=== PATIENT | male | born 1930 | race Caucasian/White ===

== ENCOUNTER 2018-11-23 13:13 | Outpatient (CLI) | payer SELFPAY | END 2018-11-23 13:14 | disposition EMS.NT | LOC: EMS 13:13 | PROVIDERS: ATTEND Surgery | DX: R06.02 Shortness of breath (principal) ==

== ENCOUNTER 2018-11-23 14:12 | Emergency (ER) | payer MEDICARE, OTHER ==
[2018-11-23 15:10] LABS: BASOPHILS % (AUTO) 0.5 %; EOSINOPHILS % (AUTO) 0.4 %; HGB - HEMOGLOBIN 13.7 g/dL (14.0-18.0); LYMPHOCYTES # (AUTO) 0.9 10^3/uL (1.5-3.5); LYMPHOCYTES % (AUTO) 11.8 %; MEAN CORPUSCULAR HEMOGLOBIN 30.8 pg (27.0-31.0); MEAN CORPUSCULAR HGB CONC 33.3 g/dL (32.0-36.0); MEAN CORPUSCULAR VOLUME 92.6 fL (80.0-94.0); MEAN PLATELET VOLUME 8.8 fL (7.4-11.4); MONOCYTES # (AUTO) 0.6 10^3/uL (0.0-1.0); MONOCYTES % (AUTO) 7.7 %; NEUTROPHILS # (AUTO) 5.8 10^3/uL (1.5-6.6); NEUTROPHILS % (AUTO) 79.6 %; PLT - PLATELET COUNT 165 10^3/uL (130-450); RED BLOOD COUNT 4.44 10^6/uL (4.70-6.10); RED CELL DISTRIBUTION WIDTH 13.8 % (12.0-15.0); WHITE BLOOD COUNT 7.3 x10^3/uL (4.8-10.8)
[2018-11-23 15:23] LABS: ALBUMIN 3.6 g/dL (3.2-5.5); ALBUMIN/GLOBULIN RATIO 1.3 (1.0-2.2); BILIRUBIN,TOTAL 1.4 mg/dL (0.2-1.0); CALCIUM 8.8 mg/dL (8.5-10.3); CREATININE 1.2 mg/dL (0.6-1.2); TOTAL PROTEIN 6.3 g/dL (6.7-8.2)
--- NOTE | 2018-11-23 15:28 | XRAY Report ---
Reason: sob Procedure Date: 11/23/2018 Accession Number: [id number] / [id number] Procedure: XR - Chest 1 View X-Ray CPT Code: 77829 FULL RESULT: EXAM: CHEST RADIOGRAPHY EXAM DATE: 11/23/2018 03:05 PM. CLINICAL HISTORY: Shortness of breath. COMPARISON: XR CHEST 2 VIEWS 09/15/2018 10:10 AM XR CHEST 2 VIEWS 04/17/2017 11:[address] CHEST WITHOUT CONTRAST 12/03/2017 12:15 PM. TECHNIQUE: 1 view. FINDINGS: Lungs/Pleura: Coarse lung markings and interstitial opacities have them proved compared with 09/15/2018 exam. There is persistent patchy and streaky opacities in the right upper lobe, nonspecific. The left lung remains relatively clear. Trace pleural effusions are seen. No pneumothorax. Mediastinum: Heart and mediastinal contours are notable for aortic calcification. Other: None. IMPRESSION: Improved interstitial pulmonary disease/edema compared with 09/15/2018. Persistent patchy right mid and upper lung airspace disease in part due to scarring is seen. Small focus of pneumonia or aspiration is not excluded. RADIA
--- NOTE | 2018-11-23 17:45 | ED Physician Documentation ---
PD HPI DYSPNEA - Stated complaint Stated Complaint: SOB - Chief complaint Chief Complaint: General - History obtained from History obtained from: Patient, EMS - History of Present Illness Timing - onset: How many hours ago (3-4), Today Timing - onset during: Exertion (carrying table, also having stress of his 's yesterday.) Timing - duration: Minutes (30-40 (onset carrying and loading table into car, continued somewhat driving to daughters house, and then carrying table into their house - felt better once there and rested).) Timing - details: Abrupt onset, Now resolved. No: Still present Inciting event(s): Exercise, Emotional event (he is very sad with his recently and yesterday was his . He is clearing out some household goods and was carrying a small table today, when developed some chest pressure/dyspnea. This continued some as he drove it to his daughters house. [place] better when rested finally. Denies ongoing chest pain.). No: Out of meds, URI Associated symptoms: No: Fever, Cough Similar symptoms before: Diagnosis (had had CAD with angina and had 2 stents placed couple years ago without problems since then. No history of lung disease.) Recently seen: Not recently seen Review of Systems Constitutional: denies: Fever Nose: denies: Rhinorrhea / runny nose, Congestion Throat: denies: Sore throat Cardiac: reports: Chest pain / pressure. denies: Palpitations, Pedal edema (he has not noted leg swelling himself.), Calf pain Respiratory: reports: Dyspnea. denies: Cough GI: denies: Abdominal Pain, Nausea, Vomiting, Bloody / black stool Skin: denies: Rash, Lesions Neurologic: reports: Generalized weakness. denies: Focal weakness, Numbness, Near syncope PD PAST MEDICAL HISTORY - Past Medical History Cardiovascular: Coronary artery disease (with 2 stents couple of years ago), Atrial fibrillation Respiratory: None Neuro: None Endocrine/Autoimmune: None - Past Surgical History Cardiovascular: Coronary stent - Present Medications Home Medications: Ambulatory Orders Medication Instructions Recorded Confirmed hydroCHLOROthiazide 25 mg PO DAILY #30 tablet 11/23/18 [Hydrochlorothiazide] - Allergies Allergies/Adverse Reactions: Allergies Allergy/AdvReac Type Severity Reaction Status Date / Time No Known Drug Allergies Allergy Verified 11/23/18 14:46 - Living Situation Living Situation: reports: With family (had lived with , who several days ago, and yesterday.) Living Arrangement: reports: At home - Social History Does the pt smoke?: No Does the pt drink ETOH?: No - Family History Family history: reports: Non contributory PD ED PE NORMAL - Vitals Vital signs reviewed: Yes (hypertensive) - General General: Alert and oriented X 3, No acute distress, Well developed/nourished - HEENT HEENT: Pharynx benign - Neck Neck: Supple, no meningeal sign, No adenopathy - Cardiac Cardiac: RRR, No murmur - Respiratory Respiratory: Clear bilaterally, Other (no chestwall tenderness) - Abdomen Abdomen: Soft, Non tender - Derm Derm: Normal color - Extremities Extremities: No deformity, No tenderness to palpate, Normal ROM s pain, No calf tenderness / cord, Other (1+ edema in both lower legs. ) - Neuro Neuro: Alert and oriented X 3, No motor deficit, Normal speech Results - Vitals Vitals: Vital Signs - 24 hr 11/23/18 11/23/18 11/23/18 14:42 17:06 18:21 Temperature 36.7 C 36.8 C Heart Rate 65 83 82 Respiratory 14 18 25 H Rate Blood Pressure 181/78 H 178/97 H 202/74 H O2 Saturation 97 98 97 11/23/18 11/23/18 11/23/18 18:23 18:24 18:33 Temperature Heart Rate 77 87 82 Respiratory 22 28 H 16 Rate Blood Pressure 202/74 H 183/100 H 193/104 H O2 Saturation 96 94 96 Oxygen O2 Source Room air - EKG (time done) 15:02 Rate: Rate (enter#) (82) Rhythm: Atrial fibrillation [place]: Normal QRS: Normal Ischemia: Normal ST segments. No: ST elevation c/w ischemia, ST depression - Labs Labs: Laboratory Tests 11/23/18 11/23/18 11/23/18 15:05 15:05 15:05 WBC 7.3 RBC 4.44 L Hgb 13.7 L Hct 41.1 L MCV 92.6 MCH 30.8 MCHC 33.3 RDW 13.8 Plt Count 165 MPV 8.8 Neut # (Auto) 5.8 Lymph # (Auto) 0.9 L [place] # (Auto) 0.6 Eos # (Auto) 0.0 Baso # (Auto) 0.0 Absolute Nucleated RBC 0.00 Nucleated RBC % 0.0 Sodium 142 Potassium 3.6 Chloride 106 Carbon Dioxide 26 Anion Gap 10.0 BUN 27 H Creatinine 1.2 Estimated GFR (MDRD) 57 L Glucose 93 Calcium 8.8 Total Bilirubin 1.4 H AST 23 ALT 17 Alkaline Phosphatase 89 Troponin I < 0.04 Total Protein 6.3 L Albumin 3.6 Globulin 2.7 Albumin/Globulin Ratio 1.3 Lipase 75 H - Rads (name of study) chest xray Radiology: Prelim report reviewed (no acute process), See rad report PD MEDICAL DECISION MAKING - ED course Complexity details: reviewed results (No signs acute VA nor CHF. CXR clear. He does not have any chest pressure/pain subsequently to that episode while carrying the table. Encouraged him to not exert and will start mild HTN med. to f/u with PMD. Consider stress test or such to eval for potential angina. He had had stents 2 years ago with self-reported normal vessels otherwise. Feel lower likelihood of angina but to follow with PMD/Immigration Manager. ), considered differential (consider VA, hypertensive symptoms, angina, CHF, lung process. ), d/w patient Departure - Departure Disposition: Home, Self Care Clinical Impression: Exertional dyspnea Hypertension Qualifiers: Hypertension type: unspecified Qualified Code(s): I10 - Essential (primary) hypertension Condition: Stable Record reviewed to determine appropriate education?: Yes Instructions: ED Dyspnea Shortness of Breath Follow-Up: Morgan Beard MD [Primary Care Provider] - Prescriptions: hydroCHLOROthiazide [Hydrochlorothiazide] 25 mg PO DAILY #30 tablet Comments: You do have a little bit of edema in your legs and your blood pressure was somewhat high. I would suggest adding a mild water pill (diuretic) hot HCTZ daily for the next several weeks to a month while you are following up with your lung doctor and primary care. Continue your other usual medications. Try not to do any exertional activity. See your incoming inspector tomorrow as planned. Return if you have symptoms develop at rest or any other worsening problem. Your EKG and blood tests here do not suggest any heart failure or heart attacks or obvious infections. The concern would be for potential angina symptoms related to the stress and blood pressure being elevated. This wants to be followed up with your providers. They will likely want to do a stress test in the near future to ensure no signs of developing new blockages in the heart. Discharge Date/Time: 11/23/18 18:56
[2018-11-23] MEDS ORDERED: METOPROLOL 5 MG/5 ML VIAL IVP STA (18:12)
[2018-11-23] MEDS ORDERED: ISOSORBIDE MONONITRATE ER 30 MG TABLET PO STA (18:20)
[2018-11-23 18:33] VITALS: BP 193/104
== END 2018-11-23 18:56 | disposition home or self-care (01) ==
LOC: ED 14:12
DX: R07.89 Other chest pain (principal); R06.09 Other forms of dyspnea; I10 Essential (primary) hypertension; I48.91 Unspecified atrial fibrillation; I45.81 Long QT syndrome; I25.10 Atherosclerotic heart disease of native coronary artery without angina pectoris; Z95.5 Presence of coronary angioplasty implant and graft
CPT/HCPCS: 36415; 71045; 80053; 83690; 84484; 85025; 93005; 96374; 99283; 99284; A9270

== ENCOUNTER 2020-03-23 19:17 | Outpatient (CLI) | payer MEDICARE, OTHER | END 2020-03-23 19:18 | disposition critical access hospital (66) | LOC: EMS 19:17 | PROVIDERS: ATTEND Surgery | DX: S09.90XA Unspecified injury of head, initial encounter (principal); W01.0XXA Fall on same level from slipping, tripping and stumbling without subsequent striking against object, initial encounter; Z79.01 Long term (current) use of anticoagulants | CPT/HCPCS: A0425; A0429 ==

== ENCOUNTER 2020-03-23 19:55 | Emergency (ER) | payer MEDICARE, OTHER ==
--- NOTE | 2020-03-23 19:42 | ED Physician Documentation ---
History of Present Illness - Stated complaint Stated Complaint: STAFFORD S/P GLF 2 DAYS AGO - History obtained from History obtained from: Patient, EMS - Additonal information Additional information: Patient is an 89-year-old male who was sent in from a nursing home facility after he hit his head 2 days ago and was complaining of his headache. Patient has baseline dementia and denies any other complaints. Known if the patient is anticoagulated or not. Review of Systems Constitutional: reports: Reviewed and negative Eyes: reports: Reviewed and negative Ears: reports: Reviewed and negative Nose: reports: Reviewed and negative Throat: reports: Reviewed and negative Cardiac: reports: Reviewed and negative Respiratory: reports: Reviewed and negative GI: reports: Reviewed and negative : reports: Reviewed and negative Skin: reports: Reviewed and negative Musculoskeletal: reports: Reviewed and negative Neurologic: reports: Headache, Head injury Psychiatric: reports: Reviewed and negative Endocrine: reports: Reviewed and negative Immunocompromised: reports: Reviewed and negative PD PAST MEDICAL HISTORY - Present Medications Home Medications: Ambulatory Orders Medication Instructions Recorded Confirmed hydroCHLOROthiazide 25 mg PO DAILY #30 tablet 11/23/18 [Hydrochlorothiazide] - Allergies Allergies/Adverse Reactions: Allergies Allergy/AdvReac Type Severity Reaction Status Date / Time No Known Drug Allergies Allergy Verified 03/23/20 20:04 PD ED PE NORMAL - Vitals Vital signs reviewed: Yes - General General: Alert and oriented X 3, No acute distress, Well developed/nourished - HEENT HEENT: Atraumatic, PERRL, EOMI, Ears normal, Moist mucous membranes, Pharynx benign, Dentition benign, Other - Neck Neck: Supple, no meningeal sign, No bony TTP - Cardiac Cardiac: RRR, No murmur - Respiratory Respiratory: No respiratory distress, Clear bilaterally - Abdomen Abdomen: Normal bowel sounds, Soft, Non tender, Non distended, No organomegaly - Back Back: No CVA TTP, No spinal TTP - Derm Derm: Normal color, Warm and dry, No rash - Extremities Extremities: No deformity, No tenderness to palpate, Normal ROM s pain, No edema, No calf tenderness / cord - Neuro Neuro: certified athletic trainer 2-12 intact, No motor deficit, No sensory deficit, Normal speech, Other (Only confused no gross neurological deficit) - Psych Psych: Normal mood, Normal affect Results - Vitals Vitals: Vital Signs - 24 hr 03/23/20 03/23/2003/23/20 20:04 20:09 21:03 Temperature 36.5 C 36.5 C 36.7 C Heart Rate 84 84 83 Respiratory 16 16 22 Rate Blood Pressure 161/66 H 161/66 H 206/85 H O2 Saturation 98 98 97 Oxygen O2 Source Room air - Labs Labs: Laboratory Tests 03/23/20 03/23/20 03/23/20 20:39 20:39 20:39 WBC 5.1 RBC 3.86 L Hgb 11.8 L Hct 36.1 L MCV 93.5 MCH 30.6 MCHC 32.7 RDW 13.9 Plt Count 145 MPV 11.0 Neut # (Auto) 3.3 Lymph # (Auto) 1.1 L [place] # (Auto) 0.5 Eos # (Auto) 0.2 Baso # (Auto) 0.0 Absolute Nucleated RBC 0.00 Nucleated RBC % 0.0 PT 13.6 H INR 1.2 APTT 29.0 Sodium 141 Potassium 2.5 L* Chloride 98 L Carbon Dioxide 33 H Anion Gap 10.0 BUN 23 H Creatinine 1.2 Estimated GFR (MDRD) 57 L Glucose 113 H Calcium 8.9 Total Bilirubin 1.7 H AST 22 ALT 13 Alkaline Phosphatase 98 Total Creatine Kinase 132 Total Protein 7.0 Albumin 3.6 Globulin 3.4 Albumin/Globulin Ratio 1.1 Lipase 45 PD MEDICAL DECISION MAKING - ED course Complexity details: re-evaluated patient, d/w patient ED course: Demented 89-year-old male from a nursing home facility fell 2 days ago complaining of a headache brought over by ambulance CT of the head and neck are negative. CT of the neck does mention a right-sided pleural effusion he was noted to have a low potassium as well which was replaced orally the patient is instructed to follow-up on further outpatient management of his incidentally noted right-sided pleural effusion. Patient will be returned to the nursing home facility and follow-up with his doctor tomorrow. Departure - Departure Disposition: 01 Home, Self Care Clinical Impression: Pleural effusion, Hypokalemia Closed head injury Qualifiers: Encounter type: initial encounter Qualified Code(s): S09.90XA - Unspecified injury of head, initial encounter Condition: Stable Instructions: ED Head Injury Closed, ED Effusion Pleural Follow-Up: your,doctor [Other] Earl Carreon MD [Provider Admit Priv/Credential] - Comments: follow up with your primary care provider this week. Your CT scan shows fluid in the right lung. Discharge Date/Time: 03/23/20 21:55
--- NOTE | 2020-03-23 20:35 | CT Report ---
PROCEDURE: HEAD WO INDICATIONS: Trauma, fall, head injury TECHNIQUE: Noncontrast 4.5 mm thick angled axial sections acquired from the foramen magnum to the vertex. For r adiation dose reduction, the following was used: automated exposure control, adjustment of mA and/or kV according to patient size. COMPARISON: None. FINDINGS: Image quality: Excellent. CSF spaces: No abnormal extra-axial fluid collection or extra-axial hemorrhage demonstrated. No findi ngs of mass effect or midline shift. Patent ventricular system and basilar cisterns. Brain: Global cerebral volume loss with patchy hypoattenuation in the cerebral hemispheric white luis er indicative of chronic microvascular ischemic change. No intraparenchymal hemorrhage. Raygoza-white ma tter differentiation is maintained, without CT evidence of acute large territory infarct. Skull and face: Calvarium and visualized facial bones are intact, without suspicious lesions. Sinuses: Visualized sinuses and mastoids are clear. IMPRESSION: No acute intracranial finding. Reviewed by: Alex Bañuelos MD on 03/23/2020 8:34 PM PDT Approved by: Alex Bañuelos MD on 03/23/2020 8:34 PM PDT Station ID: [id number]
--- NOTE | 2020-03-23 20:40 | CT Report ---
PROCEDURE: CERVICAL SPINE WO INDICATIONS: fall head inj TECHNIQUE: Noncontrast 3 mm thick sections acquired from the skull base to the T4 level. Sagittal and coronal r eformats were then constructed. For radiation dose reduction, the following was used: automated exp osure control, adjustment of mA and/or kV according to patient size. COMPARISON: None. FINDINGS: Image quality: Excellent. Bones: Numerous sclerotic lesions are present in multiple cervical and upper thoracic vertebral shital s, highly suggestive of metastatic disease. No evidence of fracture. Soft tissues: Partially visualized large right pleural effusion with consolidation in the right lung apex along with emphysematous changes. Given the numerous sclerotic lesions, lung malignancy is stron gly suspected. Nonemergent CT chest with IV contrast recommended. IMPRESSION: No evidence of fracture in the cervical spine. Numerous sclerotic cervical and upper thoracic vertebral body lesions highly suggestive of metastatic disease. Partially visualized large right pleural effusion and right upper lobe consolidation with emphysemato us change. Given the constellation of findings a lung malignancy is strongly suspected (primary or metastatic). Nonemergent CT of the chest with IV contrast is recommended. Reviewed by: Alex Bañuelos MD on 03/23/2020 8:38 PM PDT Approved by: Alex Bañuelos MD on 03/23/2020 8:38 PM PDT Station ID: [id number]
[2020-03-23 20:49] LABS: INR 1.2 (0.8-1.2); PT - PROTHROMBIN TIME 13.6 secs (9.9-12.6)
[2020-03-23 20:50] LABS: BASOPHILS % (AUTO) 0.6 %; EOSINOPHILS # (AUTO) 0.2 10^3/uL (0.0-0.7); EOSINOPHILS % (AUTO) 3.4 %; HGB - HEMOGLOBIN 11.8 g/dL (14.0-18.0); LYMPHOCYTES # (AUTO) 1.1 10^3/uL (1.5-3.5); MEAN CORPUSCULAR HEMOGLOBIN 30.6 pg (27.0-31.0); MEAN CORPUSCULAR HGB CONC 32.7 g/dL (32.0-36.0); MEAN CORPUSCULAR VOLUME 93.5 fL (80.0-94.0); MONOCYTES # (AUTO) 0.5 10^3/uL (0.0-1.0); MONOCYTES % (AUTO) 8.9 %; NEUTROPHILS # (AUTO) 3.3 10^3/uL (1.5-6.6); NEUTROPHILS % (AUTO) 65.7 %; PLT - PLATELET COUNT 145 10^3/uL (130-450); RED BLOOD COUNT 3.86 10^6/uL (4.70-6.10); RED CELL DISTRIBUTION WIDTH 13.9 % (12.0-15.0); WHITE BLOOD COUNT 5.1 x10^3/uL (4.8-10.8)
[2020-03-23 20:58] LABS: ALBUMIN 3.6 g/dL (3.2-5.5); ALBUMIN/GLOBULIN RATIO 1.1 (1.0-2.2); BILIRUBIN,TOTAL 1.7 mg/dL (0.2-1.0); CALCIUM 8.9 mg/dL (8.5-10.3); CREATININE 1.2 mg/dL (0.6-1.2)
[2020-03-23] MEDS ORDERED: POTASSIUM CHLORIDE 20 MEQ TABLET PO STA (21:00)
[2020-03-23 21:03] VITALS: BP 206/85
== END 2020-03-23 21:55 | disposition home or self-care (01) ==
LOC: EDUNIT# → ED 19:55
DX: S00.83XA Contusion of other part of head, initial encounter (principal); W19.XXXA Unspecified fall, initial encounter; Y92.129 Unspecified place in nursing home as the place of occurrence of the external cause; J90 Pleural effusion, not elsewhere classified; E87.6 Hypokalemia; F03.90 Unspecified dementia, unspecified severity, without behavioral disturbance, psychotic disturbance, mood disturbance, and anxiety; I48.91 Unspecified atrial fibrillation; Z79.01 Long term (current) use of anticoagulants
CPT/HCPCS: 36415; 70450; 72125; 80053; 82550; 83690; 85025; 85610; 85730; 99283; 99284; A9270

== ENCOUNTER 2020-03-23 21:58 | Outpatient (CLI) | payer MEDICARE, OTHER | END 2020-03-23 21:59 | disposition home or self-care (01) | LOC: EMS 21:58 | PROVIDERS: ATTEND Surgery | DX: S09.90XA Unspecified injury of head, initial encounter (principal); W19.XXXA Unspecified fall, initial encounter; R41.0 Disorientation, unspecified | CPT/HCPCS: A0425; A0428 ==

== ENCOUNTER 2020-03-24 15:05 | Outpatient (CLI) | payer MEDICARE, OTHER ==
[2020-03-24 20:51] LABS: BASOPHILS % (AUTO) 0.3 %; EOSINOPHILS # (AUTO) 0.2 10^3/uL (0.0-0.7); HGB - HEMOGLOBIN 13.3 g/dL (14.0-18.0); LYMPHOCYTES # (AUTO) 1.1 10^3/uL (1.5-3.5); LYMPHOCYTES % (AUTO) 18.3 %; MEAN CORPUSCULAR HEMOGLOBIN 30.4 pg (27.0-31.0); MEAN CORPUSCULAR HGB CONC 32.4 g/dL (32.0-36.0); MEAN CORPUSCULAR VOLUME 94.1 fL (80.0-94.0); MEAN PLATELET VOLUME 11.7 fL (7.4-11.4); MONOCYTES # (AUTO) 0.5 10^3/uL (0.0-1.0); MONOCYTES % (AUTO) 7.9 %; NEUTROPHILS # (AUTO) 4.3 10^3/uL (1.5-6.6); NEUTROPHILS % (AUTO) 70.2 %; PLT - PLATELET COUNT 153 10^3/uL (130-450); RED BLOOD COUNT 4.37 10^6/uL (4.70-6.10); RED CELL DISTRIBUTION WIDTH 14.3 % (12.0-15.0); WHITE BLOOD COUNT 6.1 x10^3/uL (4.8-10.8)
[2020-03-24 21:05] LABS: ALBUMIN/GLOBULIN RATIO 1.1 (1.0-2.2); BILIRUBIN,TOTAL 1.9 mg/dL (0.2-1.0); MAGNESIUM 2.1 mg/dL (1.7-2.8); TOTAL PROTEIN 7.6 g/dL (6.7-8.2)
== END 2020-03-24 15:06 | disposition home or self-care (01) ==
LOC: LAB.S 15:05
PROVIDERS: ATTEND Internal Medicine
DX: E87.6 Hypokalemia (principal); I10 Essential (primary) hypertension
CPT/HCPCS: 36415; 80053; 83735; 85025

== ENCOUNTER 2020-03-26 14:36 | Outpatient (CLI) | payer MEDICARE, OTHER | END 2020-03-26 14:37 | disposition critical access hospital (66) | LOC: EMS 14:36 | PROVIDERS: ATTEND Surgery | DX: R06.02 Shortness of breath (principal) | CPT/HCPCS: A0425; A0429 ==

== ENCOUNTER 2020-03-26 15:03 | Emergency (ER) | payer MEDICARE, OTHER ==
--- NOTE | 2020-03-26 15:17 | ED Physician Documentation ---
PD HPI DYSPNEA - Stated complaint Stated Complaint: SOA - Chief complaint Chief Complaint: Resp - History obtained from History obtained from: Patient, EMS - Additional information Additional information: This is a very pleasant 89-year-old gentleman who presents from [facility]. He has a history of Dementia, coronary disease with stents in place, Prostate cancer, and atrial fibrillation presents with shortness of breath.He states he was just walking up and down the hallway and started to feel short of breath but then he continued walking and got more short of breath. He feels fine now. There is no associated cough or chest pain. He is on Eliquis for anticoagulation. Review of Systems Constitutional: denies: Fever, Chills, Myalgias Cardiac: denies: Chest pain / pressure, Palpitations Respiratory: denies: Dyspnea, Cough GI: denies: Abdominal Pain, Nausea, Vomiting PD PAST MEDICAL HISTORY - Past Medical History Cardiovascular: Coronary artery disease, Atrial fibrillation Respiratory: None Neuro: None Endocrine/Autoimmune: None - Past Surgical History Past Surgical History: Yes Cardiovascular: Coronary stent - Present Medications Home Medications: Ambulatory Orders Medication Instructions Recorded Confirmed hydroCHLOROthiazide 25 mg PO DAILY #30 tablet 11/23/18 [Hydrochlorothiazide] Apixaban [Eliquis] 5 mg PO DAILY 03/26/20 03/26/20 Isosorbide Mononitrate [Isosorbide 30 mg PO DAILY 03/26/20 03/26/20 Mononitrate ER] Lisinopril/Hydrochlorothiazide 20 mg PO DAILY 03/26/20 03/26/20 [Lisinopril-Hctz 20-25 mg Tab] Metoprolol/Hydrochlorothiazide 100 mg PO DAILY 03/26/20 03/26/20 [Metoprolol-Hctz 100-50 mg Tab] Potassium Chloride 20 meq PO DAILY 03/26/20 03/26/20 Rosuvastatin Calcium 5 mg PO DAILY 03/26/20 03/26/20 Spironolact/Hydrochlorothiazid 25 mg PO DAILY 03/26/20 03/26/20 [Spironolactone-Hctz 25-25 Tab] Tamsulosin [Flomax] 0.4 mg PO DAILY 03/26/20 03/26/20 - Allergies Allergies/Adverse Reactions: Allergies Allergy/AdvReac Type Severity Reaction Status Date / Time No Known Drug Allergies Allergy Verified 03/26/20 15:09 - Social History Does the pt smoke?: No Smoking Status: Never smoker Does the pt drink ETOH?: No Does the pt have substance abuse?: No - Immunizations Immunizations are current?: Yes PD ED PE NORMAL - Vitals Vital signs reviewed: Yes - General General: Other (He seems mildly but pleasantly demented with actually decent recent recall.) - HEENT HEENT: PERRL, EOMI - Neck Neck: Supple, no meningeal sign, No bony TTP - Cardiac Cardiac: Other (Irregularly irregular but rate controlled without murmur) - Respiratory Respiratory: Other (Rhonchi at the bases that clear with deep breathing) - Abdomen Abdomen: Soft, Non tender - Back Back: No CVA TTP - Derm Derm: Normal color, Warm and dry - Extremities Extremities: No calf tenderness / cord, Other (Mild pitting pedal edema which is symmetric.) - Neuro Eye Opening: Spontaneous Motor: Obeys Commands Verbal: Oriented GCS Score: 15 - Psych Psych: Normal mood, Normal affect Results - Vitals Vitals: Vital Signs - 24 hr 03/26/20 03/26/20 15:09 15:17 Temperature 37.0 C 37 C Heart Rate 73 73 Respiratory 16 16 Rate Blood Pressure 162/89 H 162/89 H O2 Saturation 97 97 Oxygen O2 Source Room air - EKG (time done) 1537 Rate: Rate (enter#) (76) Rhythm: Atrial fibrillation [place]: Normal Intervals: Prolonged QT Ischemia: Q waves (anterior) Computer interpretation: Agree with computer - Labs Labs: Laboratory Tests 03/26/20 03/26/20 03/26/20 15:26 15:26 15:26 WBC 4.8 RBC 3.91 L Hgb 11.8 L Hct 36.3 L MCV 92.8 MCH 30.2 MCHC 32.5 RDW 14.0 Plt Count 149 MPV 10.7 Neut # (Auto) 3.4 Lymph # (Auto) 0.8 L [place] # (Auto) 0.4 Eos # (Auto) 0.1 Baso # (Auto) 0.0 Absolute Nucleated RBC 0.00 Nucleated RBC % 0.0 Sodium 143 Potassium 2.9 L Chloride 101 Carbon Dioxide 31 Anion Gap 11.0 BUN 22 H Creatinine 1.2 Estimated GFR (MDRD) 57 L Glucose 121 H Calcium 9.3 Total Bilirubin 1.9 H AST 24 ALT 14 Alkaline Phosphatase 95 B-Natriuretic Peptide 530 H Total Protein 6.6 L Albumin 3.7 Globulin 2.9 Albumin/Globulin Ratio 1.3 Lipase 41 - Rads (name of study) 1v chest Radiology: EMP read contemporaneously (Diffuse interstitial prominence with cardiomegaly, vascular congestion, and small right pleural effusion likely related to pulmonary edema, concurrent infectious or inflammatory process not excluded. Subcentimeter nodule right upper lung zone recommend follow-up chest radiographs in 4 to 6 weeks or) PD MEDICAL DECISION MAKING - ED course ED course: 89-year-old gentleman presents with acute shortness of breath only on exertion today. He is comfortable at rest. Chest x-ray and BNP are consistent with mild congestive heart failure. He was treated with Lasix and potassium in the department. His potassium has improved since his last visit. We will perform a coronavirus test. Departure - Departure Disposition: 01 Home, Self Care Clinical Impression: Congestive heart failure Qualifiers: Heart failure type: unspecified Heart failure chronicity: acute on chronic Qualified Code(s): I50.9 - Heart failure, unspecified Condition: Stable Record reviewed to determine appropriate education?: Yes Instructions: ED CHF General Comments: It appears that Mr. Gregg's shortness of breath today was due to mild co ngestive heart failure. He received a dose of Lasix in the emergency department as well as potassium. He needs to eat a low-salt diet, less than 2 g a day, and probably should be weighed daily to track his weights. He needs to follow- up with his physician in 1 week for recheck. We did perform a coronavirus test, he does not have not have a cough or typical symptoms of this but he should be quarantined until results are available, approximately 48 hours, we will call if positive. We will not call with a negative result. His chest x-ray today was read as: Diffuse interstitial prominence with cardiomegaly, vascular congestion, and small right pleural effusion likely related to pulmonary edema, concurrent infectious or inflammatory process not excluded. Subcentimeter nodule right upper lung zone recommend follow-up chest radiographs in 4 to [address] in follow-up. So he will need a repeat chest x-ray in 4 to [address] a chest [address] in follow-up to reassess the right upper lung nodule.
[2020-03-26 15:33] LABS: BASOPHILS % (AUTO) 0.6 %; EOSINOPHILS # (AUTO) 0.1 10^3/uL (0.0-0.7); EOSINOPHILS % (AUTO) 2.5 %; HGB - HEMOGLOBIN 11.8 g/dL (14.0-18.0); LYMPHOCYTES # (AUTO) 0.8 10^3/uL (1.5-3.5); LYMPHOCYTES % (AUTO) 17.3 %; MEAN CORPUSCULAR HEMOGLOBIN 30.2 pg (27.0-31.0); MEAN CORPUSCULAR HGB CONC 32.5 g/dL (32.0-36.0); MEAN CORPUSCULAR VOLUME 92.8 fL (80.0-94.0); MEAN PLATELET VOLUME 10.7 fL (7.4-11.4); MONOCYTES # (AUTO) 0.4 10^3/uL (0.0-1.0); MONOCYTES % (AUTO) 8.8 %; NEUTROPHILS # (AUTO) 3.4 10^3/uL (1.5-6.6); NEUTROPHILS % (AUTO) 70.6 %; PLT - PLATELET COUNT 149 10^3/uL (130-450); RED BLOOD COUNT 3.91 10^6/uL (4.70-6.10); WHITE BLOOD COUNT 4.8 x10^3/uL (4.8-10.8)
[2020-03-26 15:47] LABS: ALBUMIN 3.7 g/dL (3.2-5.5); ALBUMIN/GLOBULIN RATIO 1.3 (1.0-2.2); BILIRUBIN,TOTAL 1.9 mg/dL (0.2-1.0); CALCIUM 9.3 mg/dL (8.5-10.3); CREATININE 1.2 mg/dL (0.6-1.2); TOTAL PROTEIN 6.6 g/dL (6.7-8.2)
[2020-03-26] MEDS ORDERED: POTASSIUM CHLORIDE 20 MEQ TABLET PO STA (15:48)
--- NOTE | 2020-03-26 15:59 | XRAY Report ---
PROCEDURE: Chest 1 View X-Ray INDICATIONS: dyspnea TECHNIQUE: One view of the chest was acquired. COMPARISON: 11/23/2018 FINDINGS: Surgical changes and devices: None. Lungs and pleura: Diffuse interstitial prominence. Patchy bibasilar opacities are again noted with m ore nodular appearing opacity in the right lung base. This is unchanged. There is also a small subcen timeter nodular opacity in the right upper lung zone not definitively seen on comparison study. Other gutierrez, no focal consolidations. Mild loss of vascular distinctness. Suggestion of vascular congestion. No pneumothorax. Likely small right pleural effusion. Mediastinum: Mediastinal contours appear normal. Heart size is enlarged. Bones and chest wall: No suspicious bony lesions. Overlying soft tissues appear unremarkable. IMPRESSION: Diffuse interstitial prominence with cardiomegaly, vascular congestion, and small right pleural effus ion likely related to pulmonary edema. Concurrent infectious/inflammatory process not excluded if cli nically appropriate. Subcentimeter nodular density in the right upper lung zone not definitively visualized on comparison study. Recommend follow-up chest radiograph 4-6 weeks after treatment to document return to baseline exam. I f nodular densities persist, further characterization by CT can be considered. Reviewed by: Chalo Larsen MD on 03/26/2020 3:57 PM PDT Approved by: Chalo Larsen MD on 03/26/2020 3:57 PM PDT Station ID: [id number]
[2020-03-26] MEDS ORDERED: FUROSEMIDE 20 MG TABLET PO STA (16:05)
[2020-03-26 17:54] VITALS: BP 140/80
== END 2020-03-26 17:52 | disposition home or self-care (01) ==
LOC: EDUNIT# → ED 15:03
DX: I50.9 Heart failure, unspecified (principal); I51.7 Cardiomegaly; J90 Pleural effusion, not elsewhere classified; I48.91 Unspecified atrial fibrillation; Z79.01 Long term (current) use of anticoagulants; Z95.1 Presence of aortocoronary bypass graft; F03.90 Unspecified dementia, unspecified severity, without behavioral disturbance, psychotic disturbance, mood disturbance, and anxiety; R94.31 Abnormal electrocardiogram [ECG] [EKG]; I25.2 Old myocardial infarction
CPT/HCPCS: 36415; 71045; 80053; 83690; 83880; 85025; 93005; 99283; 99284; A9270; U0004

== ENCOUNTER 2020-04-04 17:11 | Outpatient (CLI) | payer MEDICARE, OTHER | END 2020-04-04 17:12 | disposition critical access hospital (66) | LOC: EMS 17:11 | PROVIDERS: ATTEND Surgery | DX: S09.90XA Unspecified injury of head, initial encounter (principal); M25.561 Pain in right knee; S40.812A Abrasion of left upper arm, initial encounter; W01.0XXA Fall on same level from slipping, tripping and stumbling without subsequent striking against object, initial encounter; Y93.01 Activity, walking, marching and hiking; Y92.099 Unspecified place in other non-institutional residence as the place of occurrence of the external cause | CPT/HCPCS: A0425; A0429 ==

== ENCOUNTER 2020-04-04 17:52 | Emergency (ER) | payer MEDICARE, OTHER ==
--- NOTE | 2020-04-04 18:41 | CT Report ---
PROCEDURE: HEAD WO INDICATIONS: fall, head/neck injury TECHNIQUE: Noncontrast 4.5 mm thick angled axial sections acquired from the foramen magnum to the vertex. For r adiation dose reduction, the following was used: automated exposure control, adjustment of mA and/or kV according to patient size. COMPARISON: 03/23/2020 FINDINGS: Image quality: Excellent. CSF spaces: Basal cisterns are patent. No extra-axial fluid collections. Ventricles are normal in size and shape. Brain: No midline shift. No intracranial masses or hemorrhage. There is age-appropriate volume los s and prominence of the sulci and ventricular systems. Raygoza-white matter interface is normal. Skull and face: Soft tissue swelling over the left temporoparietal region. Calvarium and visualized facial bones are intact, without suspicious lesions. Sinuses: Visualized sinuses and mastoids are clear. IMPRESSION: 1. No CT evidence of acute intracranial trauma. 2. Age-appropriate exam. 3. Left temporal soft tissue injury without underlying skull fracture. Reviewed by: Odessa Ny MD on 04/04/2020 6:40 PM PDT Approved by: Odessa Ny MD on 04/04/2020 6:40 PM PDT Station ID: [id number]
--- NOTE | 2020-04-04 18:47 | CT Report ---
PROCEDURE: CERVICAL SPINE WO INDICATIONS: fall, head/neck injury TECHNIQUE: Noncontrast 3 mm thick sections acquired from the skull base to the T4 level. Sagittal and coronal r eformats were then constructed. For radiation dose reduction, the following was used: automated exp osure control, adjustment of mA and/or kV according to patient size. COMPARISON: 03/23/2020 FINDINGS: Image quality: Excellent. Bones: No fractures or dislocations. Rounded sclerotic lesion in the C7 vertebral body and a few le sions in T1 and T2. There is probably sclerotic lesion in the right occipital condyle as well. There is hypertrophic endplate degeneration and spurring resulting in severe bilateral foraminal narr owing at multiple levels, and severe, chronic appearing central canal narrowing at C5 and C6. Visuali zed superior ribs are intact. Sclerotic round bone lesion in the right clavicle head. Soft tissues: Prevertebral soft tissues are normal in thickness. No paravertebral hematomas. Large right pleural effusion. IMPRESSION: 1. No CT evidence of acute fracture. 2. Severe degenerative change. 3. Multiple bone lesions suspicious for metastatic disease. 4. Large right pleural effusion as seen previously. Reviewed by: Odessa Ny MD on 04/04/2020 6:46 PM PDT Approved by: Odessa Ny MD on 04/04/2020 6:46 PM PDT Station ID: [id number]
[2020-04-04] MEDS ORDERED: BACITRACIN ZINC OINT 1 PACKET TOP STA (19:20)
--- NOTE | 2020-04-04 19:20 | ED Physician Documentation ---
History of Present Illness - Stated complaint Stated Complaint: GLF/HEAD INJ - Chief complaint Chief Complaint: Trauma Hd/Nk - History obtained from History obtained from: Patient, EMS - History of Present Illness Timing: Today Pain level max: 0 Pain level now: 0 - Additonal information Additional information: tripped and fell while walking. Patient has a longstanding history of dementia. He suffered a witnessed fall. The assisted living bandaged up the abrasions to the left forearm and called 911. Patient brought in and C-spine. Patient states he has no complaints and just wants to go home. Tetanus up-to-date. Review of Systems Unable to obtain: Dementia Constitutional: denies: Fever Respiratory: denies: Cough GI: denies: Vomiting, Diarrhea Skin: denies: Rash Musculoskeletal: denies: Neck pain, Back pain Neurologic: denies: Focal weakness PD PAST MEDICAL HISTORY - Past Medical History Past Medical History: Yes Cardiovascular: Coronary artery disease, Atrial fibrillation Respiratory: None Neuro: None Endocrine/Autoimmune: None - Past Surgical History Past Surgical History: Yes Cardiovascular: Coronary stent - Present Medications Home Medications: Ambulatory Orders Medication Instructions Recorded Confirmed Apixaban [Eliquis] 5 mg PO DAILY 03/26/20 03/26/20 Isosorbide Mononitrate [Isosorbide 30 mg PO DAILY 03/26/20 03/26/20 Mononitrate ER] Lisinopril/Hydrochlorothiazide 20 mg PO DAILY 03/26/20 03/26/20 [Lisinopril-Hctz 20-25 mg Tab] Metoprolol/Hydrochlorothiazide 100 mg PO DAILY 03/26/20 03/26/20 [Metoprolol-Hctz 100-50 mg Tab] Potassium Chloride 10 meq PO DAILY 03/26/20 03/26/20 Rosuvastatin Calcium 5 mg PO DAILY 03/26/20 03/26/20 Spironolact/Hydrochlorothiazid 25 mg PO DAILY 03/26/20 03/26/20 [Spironolactone-Hctz 25-25 Tab] Tamsulosin [Flomax] 0.4 mg PO DAILY 03/26/20 03/26/20 Abiraterone Acetate [Zytiga] 250 mg PO DAILY 04/04/20 04/04/20 Furosemide 20 mg PO DAILY 04/04/20 04/04/20 - Allergies Allergies/Adverse Reactions: Allergies Allergy/AdvReac Type Severity Reaction Status Date / Time No Known Drug Allergies Allergy Verified 04/04/20 18:01 - Social History Does the pt smoke?: No Smoking Status: Never smoker Does the pt drink ETOH?: No Does the pt have substance abuse?: No - Immunizations Immunizations are current?: Yes PD ED PE NORMAL - Vitals Vital signs reviewed: Yes - General General: No acute distress, Well developed/nourished, Other (Alert, oriented to person and place) - HEENT HEENT: Atraumatic (small hematoma to the L forehead. 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 ) Cervical spine CT Radiology: Prelim report reviewed, EMP read contemporaneously, See rad report (no acute abnormality) PD MEDICAL DECISION MAKING - ED course Complexity details: reviewed results, re-evaluated patient, considered differential, d/w patient ED course: Patient with fall today. normal CT scans. Ambulating without difficulty. Abrasions cleansed and bandaged. No fractures. NVI. Baseline mentation. Departure - Departure Disposition: 01 Home, Self Care Clinical Impression: Skin tear, Pleural effusion Closed head injury Qualifiers: Encounter type: initial encounter Qualified Code(s): S09.90XA - Unspecified inj ury of head, initial encounter Condition: Good Instructions: ED Head Injury Closed, ED Wound Care Follow-Up: Noé Tracey MD [Primary Care Provider] - Within 3 Days Comments: Keep your wounds clean and bandaged. Return if you notice redness, swelling or drainage from the wound. Your head CT does not show any acute abnormalities. Your cervical spine CT again shows the fluid buildup in your left lung as well as the bone lesions that are suspicious for possible metastatic disease. 1. No CT evidence of acute fracture. 2. Severe degenerative change. 3. Multiple bone lesions suspicious for metastatic disease. 4. Large right pleural effusion as seen previously.
[2020-04-04 22:54] VITALS: BP 148/98
== END 2020-04-04 22:53 | disposition home or self-care (01) ==
LOC: EDUNIT# → ED 17:52
DX: S50.812A Abrasion of left forearm, initial encounter (principal); S09.90XA Unspecified injury of head, initial encounter; W01.0XXA Fall on same level from slipping, tripping and stumbling without subsequent striking against object, initial encounter; Y93.01 Activity, walking, marching and hiking; J90 Pleural effusion, not elsewhere classified; F03.90 Unspecified dementia, unspecified severity, without behavioral disturbance, psychotic disturbance, mood disturbance, and anxiety; I48.91 Unspecified atrial fibrillation; Z86.79 Personal history of other diseases of the circulatory system; Z95.5 Presence of coronary angioplasty implant and graft; Z79.01 Long term (current) use of anticoagulants
CPT/HCPCS: 70450; 72125; 99282; 99284

== ENCOUNTER 2020-04-08 10:03 | Outpatient (CLI) | payer MEDICARE, OTHER ==
[2020-04-08] MEDS ORDERED: IOVERSOL 320 100 ML VIAL IVP ONE (14:07)
== END 2020-04-08 10:04 | disposition critical access hospital (66) ==
LOC: EMS 10:03
PROVIDERS: ATTEND Surgery
DX: R41.82 Altered mental status, unspecified (principal); R46.89 Other symptoms and signs involving appearance and behavior
CPT/HCPCS: A0425; A0429; Q9967

== ENCOUNTER 2020-04-08 10:27 | Emergency (ER) | payer MEDICARE, OTHER ==
--- NOTE | 2020-04-08 10:45 | ED Physician Documentation ---
PD HPI ALTERED MENTAL STATUS - Stated complaint Stated Complaint: ALOC - Chief complaint Chief Complaint: General - History obtained from History obtained from: Patient, EMS, Caregiver - History of Present Illness Timing - onset: How many days ago ([facility] reports the patient has had notable weight loss over the past 1-2 weeks. He says he has been eating, and taking protein shakes. He has been more episodes of anxious and agitated the past week or so. No change in meds. He is going to be going to a dementia care facility next .) Timing - duration: Days Timing - details: Gradual onset, Waxing and waning Quality / character: Agitated Associated symptoms: Other (weight loss oer the past couple of weeks.). No: Fever, Headache Contributing factors: Anticoagulated. No: Diabetic, Recent med change, Recent illness, Recent injury Basline status: Alert and oriented X 3, Ambulatory Treatment DIRECTOR [employer] SALES: Accucheck Similar symptoms before: Has not had sx before Recently seen: Not recently seen Review of Systems Unable to obtain: Dementia Constitutional: denies: Fever Nose: denies: Rhinorrhea / runny nose, Congestion Throat: denies: Sore throat Cardiac: denies: Chest pain / pressure Respiratory: denies: Cough GI: reports: Nausea (at times with less appetite, but pt says he eats well at other times). denies: Abdominal Pain, Vomiting, Diarrhea : denies: Dysuria Skin: denies: Rash Neurologic: denies: Focal weakness, Numbness, Altered mental status (has had ongoing forgetfulness and sometimes agitated but not assaultive.), Headache, Head injury PD PAST MEDICAL HISTORY - Past Medical History Cardiovascular: Coronary artery disease, Atrial fibrillation Respiratory: None Neuro: None Endocrine/Autoimmune: None - Past Surgical History Past Surgical History: Yes Cardiovascular: Coronary stent - Present Medications Home Medications: Ambulatory Orders Medication Instructions Recorded Confirmed Apixaban [Eliquis] 5 mg PO DAILY 03/26/20 03/26/20 Isosorbide Mononitrate [Isosorbide 30 mg PO DAILY 03/26/20 03/26/20 Mononitrate ER] Lisinopril/Hydrochlorothiazide 20 mg PO DAILY 03/26/20 03/26/20 [Lisinopril-Hctz 20-25 mg Tab] Metoprolol/Hydrochlorothiazide 100 mg PO DAILY 03/26/20 03/26/20 [Metoprolol-Hctz 100-50 mg Tab] Potassium Chloride 10 meq PO DAILY 03/26/20 03/26/20 Rosuvastatin Calcium 5 mg PO DAILY 03/26/20 03/26/20 Spironolact/Hydrochlorothiazid 25 mg PO DAILY 03/26/20 03/26/20 [Spironolactone-Hctz 25-25 Tab] Tamsulosin [Flomax] 0.4 mg PO DAILY 03/26/20 03/26/20 Abiraterone Acetate [Zytiga] 250 mg PO DAILY 04/04/20 04/04/20 Furosemide 20 mg PO DAILY 04/04/20 04/04/20 Certavite 1 tab ORAL 04/08/20 Potassium Chloride 10 meq PO DAILY #30 tablet.er 04/08/20 Prednisone 04/08/20 haloperidoL [Haldol] 1 mg PO BID #20 tablet 04/08/20 - Allergies Allergies/Adverse Reactions: Allergies Allergy/AdvReac Type Severity Reaction Status Date / Time No Known Drug Allergies Allergy Verified 04/08/20 10:40 - Social History Does the pt smoke?: No Smoking Status: Never smoker Does the pt drink ETOH?: No Does the pt have substance abuse?: No - Immunizations Immunizations are current?: Yes PD ED PE NORMAL - Vitals Vital signs reviewed: Yes - General General: Alert and oriented X 3, No acute distress, Well developed/nourished - HEENT HEENT: Atraumatic, PERRL, Moist mucous membranes, Pharynx benign - Neck Neck: Supple, no meningeal sign, No adenopathy - Cardiac Cardiac: RRR, No murmur - Respiratory Respiratory: No respiratory distress, Clear bilaterally - Abdomen Abdomen: Normal bowel sounds, Soft, Non tender - Back Back: No CVA TTP - Derm Derm: Normal color, Warm and dry - Extremities Extremities: No tenderness to palpate, Normal ROM s pain, No edema, No calf tenderness / cord - Neuro Neuro: Alert and oriented X 3, 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, No motor deficit, No sensory deficit, Normal speech Eye Opening: Spontaneous Motor: Obeys Commands Verbal: Oriented GCS Score: 15 Results - Vitals Vitals: Vital Signs - 24 hr 04/08/20 04/08/20 10:30 13:08 Temperature 36.1 C L 35.4 C L Heart Rate 99 70 Respiratory 16 18 Rate Blood Pressure 199/84 H 203/87 H O2 Saturation 71 L 96 Oxygen O2 Source Room air - Labs Labs: Laboratory Tests 04/08/20 04/08/20 04/08/20 11:05 11:12 11:12 WBC 5.5 RBC 4.26 L Hgb 13.1 L Hct 39.8 L MCV 93.4 MCH 30.8 MCHC 32.9 RDW 14.3 Plt Count 176 MPV 10.5 Neut # (Auto) 3.9 Lymph # (Auto) 0.9 L [place] # (Auto) 0.5 Eos # (Auto) 0.1 Baso # (Auto) 0.0 Absolute Nucleated RBC 0.00 Nucleated RBC % 0.0 Sodium 143 Potassium 2.9 L Chloride 101 Carbon Dioxide 30 Anion Gap 12.0 BUN 22 H Creatinine 1.0 Estimated GFR (MDRD) 70 L Glucose 70 Calcium 9.4 Magnesium 2.0 Total Bilirubin 1.6 H AST 23 ALT 16 Alkaline Phosphatase 88 B-Natriuretic Peptide Total Protein 7.4 Albumin 3.7 Globulin 3.7 Albumin/Globulin Ratio 1.0 Lipase 56 H TSH Urine Color YELLOW Urine Clarity CLEAR Urine pH 7.0 Ur Specific [place] 1.020 Urine Protein NEGATIVE Urine Glucose (UA) NEGATIVE Urine Ketones NEGATIVE Urine Occult Blood NEGATIVE Urine Nitrite NEGATIVE Urine Bilirubin NEGATIVE Urine Urobilinogen 1 (NORMAL) Ur Leukocyte Esterase NEGATIVE Ur Microscopic Review NOT INDICATED Urine Culture Comments NOT INDICATED 04/08/20 04/08/20 11:12 11:12 WBC RBC Hgb Hct MCV MCH MCHC RDW Plt Count MPV Neut # (Auto) Lymph # (Auto) [place] # (Auto) Eos # (Auto) Baso # (Auto) Absolute Nucleated RBC Nucleated RBC % Sodium Potassium Chloride Carbon Dioxide Anion Gap BUN Creatinine Estimated GFR (MDRD) Glucose Calcium Magnesium Total Bilirubin AST ALT Alkaline Phosphatase B-Natriuretic Peptide 647 H Total Protein Albumin Globulin Albumin/Globulin Ratio Lipase TSH 1.41 Urine Color Urine Clarity Urine pH Ur Specific [place] Urine Protein Urine Glucose (UA) Urine Ketones Urine Occult Blood Urine Nitrite Urine Bilirubin Urine Urobilinogen Ur Leukocyte Esterase Ur Microscopic Review Urine Culture Comments - Rads (name of study) head CT Radiology: Prelim report reviewed (no acute process), See rad report chest/abd CT Radiology: Prelim report reviewed (bony sclerotic changes diffusely c/w blastic metastases. Moderate right pleural effusion with some pleural thickening. abd organs okay. ), See rad report PD MEDICAL DECISION MAKING - ED course Complexity details: reviewed results (less appetite and weight loss may be reasonable to assoicate with his metastatic cancer. Does not sound as if metabolic disorder. ), re-evaluated patient (he is calm, interacts, pleasant here. Not agitated. ), considered differential (looking in recent visits, there was suggestion of metastatic disease on neck/upper back spine, but no direct imaging of chest/abd. It may be known already but pt does not seem aware of metastatic dz, just prior prostate CA. It does look like pt has not had the cancer med for about 2 weeks), d/w patient ED course: Nursing called [facility] and they apparently were having difficulties getting latest Rx from the pharmacy. Had been getting it regularly prior to that. [facility] was willing to have pt back if some med added to help with his agitation until next week. Departure - Departure Disposition: 01 Home, Self Care Clinical Impression: Weight loss, Agitation, Hypokalemia, Prostate cancer metastatic to bone Condition: Stable Record reviewed to determine appropriate education?: Yes Prescriptions: haloperidoL [Haldol] 1 mg PO BID #20 tablet Potassium Chloride 10 meq PO DAILY #30 tablet.er Comments: Continue your current medications. Encourage the supplement shakes (unsure) according to your medication list. Contact your urologist and primary care regarding the findings (low potassium, lung effusion) if they want to change any of your medicines. For now, add Haldol 1 mg twice daily. Follow up with your primary care about continuing it, but first to see if it helps you. I wrote Rx for 10 days worth. Discharge Date/Time: 04/08/20 15:03
[2020-04-08 11:13] LABS: BILIRUBIN,URINE NEGATIVE (NEGATIVE); GLUCOSE, URINE (UA) NEGATIVE (NEGATIVE); KETONES,URINE (UA) NEGATIVE (NEGATIVE); LEUKOCYTE ESTERASE, URINE NEGATIVE (NEGATIVE); NITRITE,URINE NEGATIVE (NEGATIVE); OCCULT BLOOD,URINE NEGATIVE (NEGATIVE); PROTEIN,URINE NEGATIVE (NEGATIVE); UROBILINOGEN,URINE 1 (NORMAL) E.U./dL (NORMAL)
[2020-04-08 11:14] LABS: CLARITY,URINE CLEAR (CLEAR)
[2020-04-08 11:18] LABS: BASOPHILS % (AUTO) 0.7 %; EOSINOPHILS # (AUTO) 0.1 10^3/uL (0.0-0.7); EOSINOPHILS % (AUTO) 2.5 %; HGB - HEMOGLOBIN 13.1 g/dL (14.0-18.0); LYMPHOCYTES # (AUTO) 0.9 10^3/uL (1.5-3.5); LYMPHOCYTES % (AUTO) 16.6 %; MEAN CORPUSCULAR HEMOGLOBIN 30.8 pg (27.0-31.0); MEAN CORPUSCULAR HGB CONC 32.9 g/dL (32.0-36.0); MEAN CORPUSCULAR VOLUME 93.4 fL (80.0-94.0); MEAN PLATELET VOLUME 10.5 fL (7.4-11.4); MONOCYTES # (AUTO) 0.5 10^3/uL (0.0-1.0); MONOCYTES % (AUTO) 9.6 %; NEUTROPHILS # (AUTO) 3.9 10^3/uL (1.5-6.6); NEUTROPHILS % (AUTO) 70.2 %; PLT - PLATELET COUNT 176 10^3/uL (130-450); RED BLOOD COUNT 4.26 10^6/uL (4.70-6.10); RED CELL DISTRIBUTION WIDTH 14.3 % (12.0-15.0); WHITE BLOOD COUNT 5.5 x10^3/uL (4.8-10.8)
[2020-04-08 11:33] LABS: ALBUMIN 3.7 g/dL (3.2-5.5); BILIRUBIN,TOTAL 1.6 mg/dL (0.2-1.0); CALCIUM 9.4 mg/dL (8.5-10.3); TOTAL PROTEIN 7.4 g/dL (6.7-8.2)
[2020-04-08] MEDS ORDERED: POTASSIUM CHLORIDE 20 MEQ TABLET PO STA (11:46)
[2020-04-08] MEDS ORDERED: POTASSIUM CHLOR 10 MEQ/100 ML 10 MEQ/100 ML BAG IV STA (11:46)
[2020-04-08] MEDS ORDERED: haloperidoL 1 MG TABLET PO STA (12:32)
--- NOTE | 2020-04-08 13:03 | CT Report ---
PROCEDURE: HEAD WO INDICATIONS: Trauma, fall last week with agitation, on Eliquis TECHNIQUE: Noncontrast 4.5 mm thick angled axial sections acquired from the foramen magnum to the vertex. For r adiation dose reduction, the following was used: automated exposure control, adjustment of mA and/or kV according to patient size. COMPARISON: 04/04/2020, 03/23/2020. FINDINGS: Image quality: Excellent. CSF spaces: Basal cisterns are patent. No extra-axial fluid collections. Ventricles are normal in size and shape. Brain: No midline shift. No intracranial masses or hemorrhage. Raygoza-white matter interface is norm al. Skull and face: Calvarium and visualized facial bones are intact, without suspicious lesions. Sinuses: Visualized sinuses and mastoids are clear. IMPRESSION: No acute intracranial finding. Global cerebral volume loss and chronic microvascular isc hemic changes redemonstrated. Reviewed by: Alex Bañuelos MD on 04/08/2020 1:01 PM PDT Approved by: Alex Bañuelos MD on 04/08/2020 1:01 PM PDT Station ID: [id number]
[2020-04-08 13:10] VITALS: BP 203/87
--- NOTE | 2020-04-08 13:38 | CT Report ---
PROCEDURE: CHEST W INDICATIONS: weight loss, effusion, h/o prostate CA; likely met CONTRAST: IV CONTRAST: Optiray 320 ml: 100 PO CONTRAST: *NO PO CONTRAST TECHNIQUE: After the administration of intravenous contrast, 5 mm thick sections acquired from the pulmonary api ken to the posterior costophrenic angles. 7 mm thick coronal MIP reformats were acquired. For radia tion dose reduction, the following was used: automated exposure control, adjustment of mA and/or kV according to patient size. COMPARISON: None. FINDINGS: Image quality: Excellent. Lungs and pleura: There is a moderate to large right pleural effusion with associated compressive ate lectasis in the right lung. A minimal left effusion is noted. There is mild pleural thickening and en hancement posteriorly in the right hemithorax. Moderate paraseptal emphysematous changes are demonstr ated as well as bilateral linear areas of scarring. Subpleural reticular opacities are demonstrated b ilaterally compatible chronic interstitial changes. No discrete suspicious nodules or mass lesions. N o pneumothorax. Mediastinum: Heart size is at the upper limits of normal. No pericardial effusion. There is modera te coronary arterial vascular calcification. No mediastinal or hilar adenopathy by size criteria. The re are a few scattered subcentimeter mediastinal lymph nodes which are nonspecific but likely reactiv e. Thoracic aorta and central pulmonary arteries are normal in size. Esophagus is normal in caliber . No hiatal hernia. Bones and chest wall: Numerous sclerotic lesions are demonstrated throughout the visualized osseous structures including throughout the spine, and the sternum, multiple bilateral ribs, the clavicles, s capulae, and proximal humeri consistent with metastatic disease. No vertebral body compression fractu res. No axillary or supraclavicular adenopathy by size criteria. Thyroid gland demonstrates no disc rete nodules. Abdomen: Visualized upper abdomen demonstrates a few cysts within the visualized right kidney. IMPRESSION: 1. Moderate to large right pleural effusion with mild pleural thickening and enhancement but no discr ete associated mass identified. 2. Extensive sclerotic lesions throughout the visualized osseous structures consistent with blastic m etastatic disease. 3. Moderate paraseptal emphysematous changes in the lungs and chronic interstitial lung disease. Reviewed by: Neal Castañeda MD on 04/08/2020 1:37 PM PDT Approved by: Neal Castañeda MD on 04/08/2020 1:37 PM PDT Station ID: [id number]
--- NOTE | 2020-04-08 13:52 | CT Report ---
PROCEDURE: Abdomen/Pelvis W INDICATIONS: weight loss; prior prostate CA; likely metastatic CONTRAST: IV CONTRAST: Optiray 320 ml: 100 PO CONTRAST: *NO PO CONTRAST TECHNIQUE: After the administration of intravenous contrast, 5 mm thick sections acquired from the diaphragms to the symphysis. 5 mm thick coronal and sagittal reformats were acquired. For radiation dose reducti on, the following was used: automated exposure control, adjustment of mA and/or kV according to naa ent size. COMPARISON: Concurrent CT of the chest. FINDINGS: Image quality: Excellent. ABDOMEN: Lung bases: A moderate to large right pleural effusion is partially visualized. There is mild pleura l thickening and enhancement posteriorly. A trace left effusion is also noted. Heart size is mildly e nlarged. There is a small hiatal hernia. Solid organs: Evaluation of the liver demonstrates no focal hepatic lesions. Gallbladder appears wit hin normal limits without calcified gallstones. Biliary system is non dilated. The spleen is normal in size. Pancreas enhances normally without peripancreatic fat stranding or fluid collections. No ad renal nodules. Kidneys demonstrate no hydronephrosis. There is a small nonobstructing stone within t he inferior pole the left kidney measuring up to 0.4 cm. 2 right renal cysts are noted. Peritoneum and bowel: Bowel loops demonstrate normal wall thickness and caliber. There is colonic d iverticulosis without acute diverticulitis. No free fluid or air. Nodes and vessels: No retroperitoneal or mesenteric adenopathy by size criteria. 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 There is exophytic extension posterior inferiorly. Miscellaneous: No ventral hernias. PELVIS: Genitourinary: Bladder wall thickness is normal. There are fiducial markers in the prostate. Miscellaneous: No inguinal hernias or adenopathy. Bones: There are numerous sclerotic lesions throughout the visualized osseous structures including t hroughout the spine, visualized ribs, bony pelvis, and visualized femurs. Findings are consistent wit h blastic metastatic disease. No vertebral body compression fractures. No definite pathologic fractur es identified. IMPRESSION: 1. 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 2. 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 3. Partially visualized moderate to large right pleural effusion. Reviewed by: Neal Castñaeda MD on 04/08/2020 1:51 PM PDT Approved by: Neal Castañeda MD on 04/08/2020 1:51 PM PDT Station ID: [id number]
[2020-04-08] MEDS ORDERED: IOVERSOL 320 100 ML VIAL IVP ONE (16:12)
== END 2020-04-08 15:03 | disposition home or self-care (01) ==
LOC: EDUNIT# → ED 10:27
DX: R63.4 Abnormal weight loss (principal); R45.1 Restlessness and agitation; C61 Malignant neoplasm of prostate; C79.51 Secondary malignant neoplasm of bone; Z91.14 Patient's other noncompliance with medication regimen; J90 Pleural effusion, not elsewhere classified; J84.9 Interstitial pulmonary disease, unspecified; I48.91 Unspecified atrial fibrillation; Z79.01 Long term (current) use of anticoagulants; Z95.5 Presence of coronary angioplasty implant and graft; F03.90 Unspecified dementia, unspecified severity, without behavioral disturbance, psychotic disturbance, mood disturbance, and anxiety; E87.6 Hypokalemia; Z86.79 Personal history of other diseases of the circulatory system
CPT/HCPCS: 36415; 70450; 71260; 74177; 80053; 81003; 83690; 83735; 83880; 84443; 85025; 96365; 96366; 99284; A9270; Q9967; 81001; 87086